=== PATIENT | male | born 1945 | race Caucasian/White ===

== ENCOUNTER → 2025-09-18 15:19 | Outpatient (REF) | payer OTHER, SELFPAY | LOC: PAVMRI 15:19 | PROVIDERS: ATTENDING PHYSICIAN Family Medicine Sports Medicine | DX: M47.26 Other spondylosis with radiculopathy, lumbar region (principal); M54.31 Sciatica, right side; M54.16 Radiculopathy, lumbar region | CPT/HCPCS: 72148 ==